=== PATIENT | female | born 1955 | race Caucasian/White ===

== ENCOUNTER → 2019-05-20 | Outpatient (CLI) | payer MEDICARE, OTHER ==
[2019-05-20 08:30] LABS: African American GFR (CKD) >90 (>60 ml/min/1.73 sqM); Blood Urea Nitrogen 21 mg/dL (7-17); Non-African American GFR(CKD) >90 (>60 ml/min/1.73 sqM)
--- NOTE | 2019-05-20 09:39 | CT ---
EXAMINATION TYPE: CT chest wo/w con DATE OF EXAM: 05/20/2019 COMPARISON: NONE HISTORY: Right midlung nodule CT DLP: 789 mGycm. Automated Exposure Control for Dose Reduction was Utilized. TECHNIQUE: CT scan of the thorax is performed without and with IV Contrast, patient injected with 10 0 mL of Isovue 300. FINDINGS: LUNGS: In the subpleural anterolateral right midlung there is centrally calcified 1.2 x 0.9 cm hyperd ense nodule without significant enhancement axial image 21 series 4. There is central left basilar li near scarring and/or atelectasis. No suspicious noncalcified nodules or masses. No pleural effusion o r pneumothorax is evident bilaterally. Tracheobronchial tree is patent. MEDIASTINUM: There are no greater than 1 cm hilar or mediastinal lymph nodes. No pericardial effusi on is seen. Cardiomegaly is present. There is dual lead pacemaker/AICD. There is moderate to severe biatrial dilatation. There is left ventricular concentric hypertrophy. There are enlarged pulmonary a rteries, main pulmonary artery measures 3.5 cm in diameter axial image 21, CT findings consistent wit h underlying pulmonary artery hypertension. Adjacent ascending aorta measures up to 4.1 cm in diamete r. Aneurysm extends into the arch measuring up to 3.9 cm in origin of right brachiocephalic artery. N o descending thoracic aortic aneurysm. Mild peripheral plaque along course of descending aorta calcif ication at level of mitral valve. At least moderate coronary artery calcification which is noted marsha ed underlying coronary artery disease. There are surgical sutures near gastroesophageal junction above the diaphragm suspected Kleber fundop lication surgery with recurrent focal [id number] size hiatal hernia. Stomach is poorly distend ed below the diaphragm. There are additional sutures in adjacent bowel loop of the gastric region. Th ere are surgical clips just inferior to this. OTHER: Cholecystectomy clips are present. Hemangioma T12 vertebra. IMPRESSION: Anterior lateral right upper to midlung nodule favors benign etiology or granuloma. Confi rmation with old outside chest x-ray could confirm. Other findings as noted above.
== END ==
LOC: RADCTMAIN 07:32
PROVIDERS: ATTEND Family Medicine
DX: R91.1 Solitary pulmonary nodule (principal); R91.8 Other nonspecific abnormal finding of lung field
CPT/HCPCS: 82565; 84520; 71270; 36415; Q9967

== ENCOUNTER 2019-06-04 11:09 | Day surgery (SDC) | payer MEDICARE, OTHER ==
[2019-06-02 16:21] VITALS: BMI 29.5
[~2019-06-04 11:09] MED LIST: LACTATED RINGERS 1,000 ML IV SCH
[2019-06-04] MEDS ORDERED: LIDOCAINE 1% 20 ML VIAL (10MG/ML) FOR IV START INTRADERMA ONE (12:30)
[2019-06-04 12:31] VITALS: TEMP 97.8
[2019-06-04] MEDS ORDERED: LIDOCAINE 1% INJ 10MG/ML (20 ML MDV) ONE (13:24)
[2019-06-04] MEDS ORDERED: PROPOFOL 10 MG/ML 20 ML VIAL IV ONE (13:24)
--- NOTE | 2019-06-04 13:35 | P.PCN ---
Date of Procedure: 06/04/19 Procedure(s) Performed: BRIEF HISTORY: Patient is a 64-year-old, pleasant,, scheduled for an upper endoscopy as a part of evaluation of long-standing history of GERD of several years duration. She is currently maintained on Prilosec 20 mg twice daily as well as Protonix once daily despite which remains symptomatic.. PROCEDURE PERFORMED: Esophagogastroduodenoscopy with biopsy. PREOPERATIVE DIAGNOSIS: Long-standing history of GERD. IV sedation per anesthesia. PROCEDURE: After informed consent was obtained, the patient was brought into the endoscopy unit. IV sedation was administered by Anesthesia under continuous monitoring. Initially the Olympus GIF-140 video endoscope was inserted into the mouth. Esophagus intubated without any difficulty. It was gradually advanced into the stomach and there was a gastric pouch with previous history of Mel-en-Y gastric bypass surgery noted. The anastomosis appeared normal. Scope was advanced into the afferent and efferent loops that appeared normal. The scope was withdrawn to the gastric pouch that appeared completely normal. The scope was then withdrawn into the esophagus. The GE junction was located at 39 cm from the incisors. The esophagus appeared normal. There were no erosions or ulcerations seen, biopsies were done from the distal esophagus and the patient tolerated the procedure well. IMPRESSION: 1. Normal gastric pouch with Mel-en-Y anastomosis. 2. Normal-appearing esophagus with no evidence of esophagitis or esophageal st ricture. RECOMMENDATIONS: The findings of this examination were discussed with the patient as well as a family. She was advised to follow with the biopsy results. She was advised to continue with Prilosec 20 mg twice daily and stop the Protonix. She will follow antireflux measures.
[2019-06-04 13:43] VITALS: RESP 16
[2019-06-04 13:53] VITALS: BP 117/88; PULSE 75
== END 2019-06-04 14:09 | disposition home or self-care (01) ==
LOC: ORWHC2ENDO 11:09
PROVIDERS: ATTEND Internal Medicine Gastroenterology
DX: K21.9 Gastro-esophageal reflux disease without esophagitis (principal); I10 Essential (primary) hypertension; Z98.84 Bariatric surgery status; Z79.899 Other long term (current) drug therapy; Z91.041 Radiographic dye allergy status; Z88.1 Allergy status to other antibiotic agents; Z98.890 Other specified postprocedural states
CPT/HCPCS: 88305; 43239; J2001; J2704

== ENCOUNTER 2020-02-04 10:12 | Day surgery (SDC) | payer MEDICARE, OTHER ==
[2020-02-02 13:07] VITALS: BMI 30.9
[2020-02-04 10:28] VITALS: TEMP 97.7
[2020-02-04] MEDS ORDERED: LACTATED RINGERS 1,000 ML IV ONE (10:32)
[2020-02-04] MEDS ORDERED: LIDOCAINE 1% INJ 10MG/ML (20 ML MDV) ONE (10:50)
[2020-02-04] MEDS ORDERED: PROPOFOL 10 MG/ML 20 ML VIAL IV ONE (10:50)
[2020-02-04 10:52] LABS: Glucose,Whole Blood 98 mg/dL (75-99)
--- NOTE | 2020-02-04 11:04 | P.PCN ---
Date of Procedure: 02/04/20 Procedure(s) Performed: BRIEF HISTORY: Patient is a 64-year-old pleasant white female scheduled for an elective colonoscopy as a part of chronic diarrhea for the last 1 year duration. PROCEDURE PERFORMED: Colonoscopy random biopsies. PREOPERATIVE DIAGNOSIS: Chronic diarrhea IV sedation per Anesthesia. PROCEDURE: After informed consent was obtained, the patient, was brought into the endoscopy unit. IV sedation was administered by Anesthesia under continuous monitoring. Digital rectal examination was normal. Initially the Olympus CF-160 flexible video colonoscope was then inserted in the rectum, gradually advanced into the cecum without any difficulty. Careful examination was performed as the scope was gradually being withdrawn. Ileocecal valve and the appendiceal orifice were visualized and appeared normal. Prep was excellent. Mucosa of the cecum, ascending colon, transverse colon, descending colon, sigmoid colon, and rectum appeared normal. Random biopsies were done from ascending and descending colon to rule out microscopic/collagenous colitis Scattered sigmoid diverticulosis. Retroflexion was performed in the rectum and no lesions were seen. The patient tolerated the procedure well. IMPRESSION: Normal-appearing colon from rectum to cecum with no evidence of colorectal neoplasia . RECOMMENDATIONS: Findings of this examination were discussed with the patient as well as a family. She was advised to follow with the biopsy results and she'll be seen in office in 2 weeks..
[2020-02-04 11:27] VITALS: BP 115/70; PULSE 78; RESP 18
[2020-02-04] MEDS ORDERED: LACTATED RINGERS 1,000 ML IV SCH (11:28)
[2020-02-04] MEDS ORDERED: LIDOCAINE 1% (10MG/ML) FOR IV START INTRADERMA PRN (11:28)
== END 2020-02-04 11:49 | disposition home or self-care (01) ==
LOC: ORWHC2ENDO 10:12
PROVIDERS: ATTEND Internal Medicine Gastroenterology
DX: K52.9 Noninfective gastroenteritis and colitis, unspecified (principal); K57.30 Diverticulosis of large intestine without perforation or abscess without bleeding; I25.10 Atherosclerotic heart disease of native coronary artery without angina pectoris; I10 Essential (primary) hypertension; I42.9 Cardiomyopathy, unspecified; E07.9 Disorder of thyroid, unspecified; M19.90 Unspecified osteoarthritis, unspecified site; M79.7 Fibromyalgia; K21.9 Gastro-esophageal reflux disease without esophagitis; D64.9 Anemia, unspecified; Z88.1 Allergy status to other antibiotic agents; Z91.041 Radiographic dye allergy status; Z79.02 Long term (current) use of antithrombotics/antiplatelets; Z79.899 Other long term (current) drug therapy; Z95.810 Presence of automatic (implantable) cardiac defibrillator
CPT/HCPCS: 88305; 45380; J2001; J2704

== ENCOUNTER → 2020-06-01 | Outpatient (CLI) | payer MEDICARE, OTHER ==
--- NOTE | 2020-06-01 12:08 | CT ---
EXAMINATION TYPE: CT chest w con DATE OF EXAM: 06/01/2020 COMPARISON: 05/20/2019 HISTORY: 65-year-old female I71.2, Follow up thoracic aortic Aneurysm TECHNIQUE: Contiguous axial scanning of the chest after the administration of 100 mL of Isovue 300. Coronal/sagittal reconstructions performed. CT DLP: 355.2mGycm. Automatic exposure control utilized for a dose reduction. FINDINGS: Left anterior chest wall ICD generator with right atrial and right ventricular leads. Heart normal size without pericardial effusion. Scattered three-vessel coronary artery calcifications are present. Large caliber to the main right and left pulmonary arteries measuring up to 2.9 cm. This may reflect underlying pulmonary arterial hypertension. Ectatic aortic root at 4.0 cm (sagittal series) versus 4.5 cm, previously (again, remeasured on sagit shakeel series). Aneurysmal ascending aorta at 4.3 cm versus 4.5 cm, previously. Ectatic proximal arch at 3.9 cm versus 4.2 cm, previously. Conventional arch vessel branching anatomy. Scattered mild atherosclerotic calcifications descending thoracic aorta which is normal caliber. Right lobe of the thyroid gland is either hypoplastic or surgically absent. No thoracic lymphadenopathy by CT size criteria. Stable calcified granuloma measuring 1.5 cm redemonstrated anterolateral right upper lobe. No consoli dation or pleural effusion. Small hiatal hernia with post surgical change of Mel-en-Y gastric bypass. Suspect some scarring rela ting to ventral abdominal wall mesh repair. Cholecystectomy clips. Bones: Degenerative change of the right glenohumeral joint. Fatty matrix hemangioma within the T12 ve rtebral body. Grade 1 anterolisthesis T2-T3, T3-T4, T4-T5. Facet arthropathy upper thoracic spine. IMPRESSION: 1. Mildly aneurysmal aortic root (4.0 cm) and ascending aorta (4.3 cm). Measurements are slightly sma ller as compared to 4.5 cm as remeasured on 05/20/2019 exam. 2. Small hiatal hernia, status post Mel-en-Y gastric bypass, and stable right upper lobe calcified g ranuloma.
== END | disposition home or self-care (01) ==
LOC: RADCTMAIN 09:51
PROVIDERS: ATTEND Internal Medicine Geriatric Medicine
DX: I71.2 Thoracic aortic aneurysm, without rupture (principal); J84.10 Pulmonary fibrosis, unspecified; Z98.84 Bariatric surgery status
CPT/HCPCS: 82565; 84520; 71260; 36415; Q9967

== ENCOUNTER → 2021-06-02 | Outpatient (CLI) | payer MEDICARE, OTHER ==
--- NOTE | 2021-06-02 11:43 | CT ---
EXAMINATION TYPE: CT chest wo con DATE OF EXAM: 06/02/2021 COMPARISON: 06/01/2020 HISTORY: Thoracic Aortic Aneurysm without rupture CT DLP: 636 mGycm, Automated exposure control for dose reduction was used. CONTRAST: Performed injected with 0 mL of Isovue 300. TECHNIQUE: Axial images were obtained at 5 mm thick sections. Reconstructed images are reviewed on [employer] computer in the coronal plane. FINDINGS: The thyroid appears somewhat heterogenous. Right lobe thyroid is poorly visualized. This is incompletely evaluated. Ultrasound can be performed as clinically indicated There is a nodule within the anterior lateral right upper lung field currently measuring 1.2 x 1.8 cm . Previous measurement 1.5 cm. This has enlarged slightly over the interval. Calcification is presen t suggestive of a more benign etiology. Consider PET CT for additional evaluation. Neoplasm is not ex cluded. No enlarged mediastinal or hilar adenopathy is evident. The ascending aorta diameter at the level o f the main pulmonary artery is 4.4 cm. The main pulmonary artery diameter at the bifurcation is 3.2 cm. The aorta at the aortic root is 3.6 cm. The aorta and the transverse midaortic arch is 3.3 cm. Ao rta at the diaphragm is 2.5 cm. Coronary artery calcifications present. Limited CT sections are obtained through the upper abdomen. There is a hiatal hernia present. IMPRESSIONS: 1. Aneurysmal dilatation of the ascending thoracic aorta with maximum transverse dimension of 4.4 cm. This was then measurement error from the prior examination of 4.3 cm. 2. Slight increase of the calcified nodule within the periphery right upper lung field. Consider PET CT for additional evaluation. 3. Hiatal hernia.
== END | disposition home or self-care (01) ==
LOC: RADCTMAIN 10:46
PROVIDERS: ATTEND Internal Medicine Geriatric Medicine
DX: I71.2 Thoracic aortic aneurysm, without rupture (principal); K44.9 Diaphragmatic hernia without obstruction or gangrene; R91.1 Solitary pulmonary nodule
CPT/HCPCS: 71250

== ENCOUNTER → 2021-06-16 | Outpatient (CLI) | payer MEDICARE, OTHER ==
--- NOTE | 2021-06-16 11:27 | PE ---
EXAMINATION TYPE: PET CT fusion skull to thigh DATE OF EXAM: 06/16/2021 CLINICAL HISTORY: Solitary pulmonary nodule, abnormal CT. TECHNIQUE: Following the intravenous administration of 10.36 mCi of F-18 FDG, whole body images are performed from the skull base to the midthigh. Images are reviewed on the computer in the coronal, axial, and sagittal planes. Reconstructed rotating images are created on independent workstation and reviewed on the computer. A non-contrast CT is performed in conjunction with the PET scan. Blood g lucose level equals 86. COMPARISON: Chest CT June 02, 2021 and older studies back through 2019. FINDINGS: SKULL BASE AND NECK: No areas of suspicious abnormal hypermetabolic uptake. CHEST, MEDIASTINUM, AND HILAR REGION: Background mild underlying emphysematous change redemonstrated. Stable peripheral calcified 1.3 x 1.1 cm right upper lobe nodule is ametabolic consistent with benig n granuloma. No areas of abnormal hypermetabolic uptake. ABDOMEN AND PELVIS: Evidence of prior gastric bypass surgery with nonspecific slightly increased upta ke in the bypassed stomach immediately anterior to the sutures. Small to moderate size stable hiatal hernia redemonstrated. No adrenal masses. Normal excretion. Some mild nonspecific bowel uptake in the left and sigmoid colon. No areas of abnormal hypermetabolic uptake. OSSEOUS STRUCTURES: No areas abnormal hypermetabolic uptake. OTHER CT: Mild cardiomegaly with dual-lead pacemaker/defibrillator redemonstrated. Coronary artery ca lcification again seen which is noted marker for underlying coronary artery disease. Absent or nonvis ualized right thyroid lobe redemonstrated. Persistent ascending aortic aneurysm up to 4.3 cm. Cholecystectomy clips. Uterus surgically absent. Surgical Coils in the anterior lower abdominal wall are noted. IMPRESSION: No suspicious hypermetabolic uptake in calcified nodule consistent with benign granuloma. Nonspecific but slightly suspicious uptake in the posterior aspect of the bypassed stomach with mode rate wall thickening could reflect focal gastritis, underlying neoplasm cannot be excluded. Consider correlating clinically and with tumor markers.
== END | disposition home or self-care (01) ==
LOC: RADPETMAIN 07:06
PROVIDERS: ATTEND Internal Medicine Geriatric Medicine
DX: R91.8 Other nonspecific abnormal finding of lung field (principal)
CPT/HCPCS: 78815; A9552

== ENCOUNTER → 2022-05-30 | Outpatient (CLI) | payer MEDICARE ==
--- NOTE | 2022-05-30 11:29 | CT ---
EXAMINATION TYPE: CT angio chest DATE OF EXAM: 05/30/2022 COMPARISON: 06/02/2021 HISTORY: Thoracic aortic aneurysm. CT DLP: 927.9 mGycm CONTRAST: CTA thoracic aorta with 3-D reconstruction is performed and without and with IV Contrast, patient inj ected with 80ml mL of Isovue 370. Contrast CTA of the thoracic aorta was performed from the lung apex through the upper abdomen. 3D re construction imaging obtained at a separate workstation. CT Chest: THORACIC AORTA: Ascending thoracic aortic aneurysm measuring 4.4 cm AP dimension versus 4.4 cm previo usly. The remainder of the thoracic aorta is of normal caliber. Mild atheromatous changes seen. Ther e is no evidence for dissection or periaortic collection. LUNGS: The lungs are clear and free of infiltrate or atelectasis. Ossified granuloma right upper lob e. No pulmonary nodule or mass is detected. No pleural effusion or CT evidence of interstitial lung disease. MEDIASTINUM: No evidence for mediastinal hematoma. The heart is mildly enlarged. No evidence for mediastinal mass or adenopathy. Small fixed hiatal hernia noted. HILAR STRUCTURES: No evidence for mass. No hilar adenopathy is appreciated. OTHER: No significant abnormality. IMPRESSION- Table ascending thoracic aortic aneurysm.
== END | disposition home or self-care (01) ==
LOC: RADCTMAIN 09:53
PROVIDERS: ATTEND Internal Medicine Interventional Cardiology
DX: I71.21 Aneurysm of the ascending aorta, without rupture (principal)
CPT/HCPCS: 82565; 84520; 71275; 36415; Q9967

== ENCOUNTER → 2023-12-12 | Outpatient (CLI) | payer MEDICARE ==
[2023-12-12 10:29] LABS: African American GFR (CKD) >90 (>60 ml/min/1.73 sqM); Blood Urea Nitrogen 28 mg/dL (7-17); Non-African American GFR(CKD) 80 (>60 ml/min/1.73 sqM)
--- NOTE | 2023-12-12 11:37 | CT ---
EXAMINATION TYPE: CT angio chest, without and with contrast DATE OF EXAM: 12/12/2023 COMPARISON: 05/30/2022 HISTORY: 68-year-old female I71.2 f/u thoracic aneurysm. TECHNIQUE: Contiguous axial scanning of the chest before and after the administration of 100 ml mL of Isovue 370. Coronal/sagittal MIP reconstructions performed. 3-D reconstructions generated on a [employer] independent workstation. CT DLP: 648.5mGycm. Automatic exposure control utilized for a dose reduction. FINDINGS: Left anterior chest wall AICD generator with right atrial and right ventricular leads. Heart normal size without pericardial effusion. Extensive LAD coronary calcifications are noted. Borderline ectatic aortic root at 3.5 cm, unchanged. Aneurysm ascending aorta at 4.5 cm, slightly increased from 4.3 cm. Conventional arterial vessel branching anatomy. Upper descending thoracic aorta normal caliber 2.8 mm. Distal descending thoracic aorta normal caliber at 2.3 cm. Initial noncontrast images show no evidence for acute intramural hematoma. No evidence for aortic dis section. Enlarged caliber to the main right and left pulmonary arteries measuring up to 3.0 cm may be seen wit h pulmonary hypertension. Right thyroid lobe remains atrophic or surgically absent. Clinically correlate. No thoracic lymphadenopathy by CT size criteria. Benign calcified granuloma anterior right upper lobe. Mild emphysematous change. No consolidation or pleural effusion. Visualized upper abdomen shows a moderate sized hiatal hernia with postsurgical change at the diaphra gmatic hiatus. Scattered moderate fatty stool. Bones: Degenerative trace grade 1 anterolisthesis of L1-L2, L2-L3, and L3-L4. IMPRESSION: 1. Aneurysmal ascending aorta stable to minimally increased now 4.5 cm versus 4.3 cm, previously. 2. There may be minimal underlying emphysema. Correlate for underlying pulmonary arterial hypertensio n. 3. Extensive LAD coronary artery calcifications. 4. Postsurgical change at the diaphragmatic hiatus with a moderate-sized hiatal hernia. Clinically co rrelate.
== END | disposition home or self-care (01) ==
LOC: RADCTMAIN 09:43
PROVIDERS: ATTEND Internal Medicine Interventional Cardiology
DX: I71.20 Thoracic aortic aneurysm, without rupture, unspecified (principal); I25.10 Atherosclerotic heart disease of native coronary artery without angina pectoris; K44.9 Diaphragmatic hernia without obstruction or gangrene
CPT/HCPCS: 82565; 84520; 71275; 36415; Q9967